=== PATIENT | female | born 1965 | race Caucasian/White ===

== ENCOUNTER 2016-10-15 11:53 | Emergency (ER) | payer OTHER ==
[~2016-10-15] VITALS: Ht 172.7 cm; Wt 91.8 kg
[~2016-10-15 11:53] MED LIST: BUPR100T8 PO; EFFSR150 PO; LEVO25TA5 PO
[2016-10-15 12:00] VITALS: TEMP 37.1; Ht 172.7 cm; Wt 91.8 kg
[2016-10-15] MEDS ORDERED: BUPRTAB51 PO ×2 (12:31)
[2016-10-15] MEDS ORDERED: LEVO125T4 PO (12:31)
[2016-10-15] MEDS ORDERED: EFFSR75 PO (12:31)
[2016-10-15] MEDS ORDERED: CYCL10TA6 PO (13:10)
--- NOTE | 2016-10-15 13:10 | EMERGENCY ROOM VISIT NOTE ---
History First contact with patient: 12:04 Chief Complaint: BACK PAIN Stated Complaint: LOWER BACK PAIN ON RIGHT SIDE, ACCUTE History of Present Illness The patient is a 51 year old female who presents to the Emergency Room via private vehicle with complaints of "lower back pain on right side, acute". The patient states that she has had back pain for the past 3 days. She states that while at work it feel as though she may have pulled a muscle in the right lower back. She states that it is transient and at times it feels like there is a stabbing sensation in the right low back. She notes that it will wax and wane. She notes that at times when it strikes she will yell out in pain. When the pain is occurring she rates it as an 8/10. She notes that currently she is not expressing any pain and rates it as a 0/10. The pain is worse with movement. She denies any lower extremity weakness, bowel or bladder incontinence, numbness or tingling in the genital region, urinary symptoms, fevers, chills, chest pain, shortness of breath, history of kidney stones. She states that she does have a family history of kidney stones. Review of Systems A complete 6-point Review of Systems was discussed with the patient, with pertinent positives and negatives listed in the History of Present Illness. All remaining Review of Systems questions can be considered negative unless otherwise specified. Past Medical/Surgical History Unremarkable, herniated disc, nasal surgery Family History Diabetes, heart disease, high blood pressure, cancer, bladder disease, kidney disease or stones. Social History Smoking Status: Never Smoker Alcohol Use: occasionally Drug Use: none Marital Status: Housing Status: lives with family Occupation Status: employed Social History: Patient is currently employed. Current/Historical Medications Scheduled Bupropion Hcl (Wellbutrin Xl), 300 MG PO DAILY Cyclobenzaprine Hcl (Flexeril), 10 MG PO TID Levothyroxine Sodium (Levothyroxine Sodium), 1 TAB PO DAILY Venlafaxine Hcl (Effexor Extended Rel), 3 TAB PO QAM Allergies Coded Allergies: No Known Allergies (Verified , 10/15/16) Physical Exam Vital Signs Date Time Temp Pulse Resp B/P Pulse Ox O2 Delivery O2 Flow Rate FiO2 10/15/16 13:20 84 16 125/80 100 10/15/16 12:00 37.1 92 18 150/111 99 Room Air Physical Exam VITAL SIGNS - Vital signs and nursing notes were reviewed. Patient is afebrile , slightly hypertensive at 150/111, non-tachycardic and saturating well on room air 99%. GENERAL -51-year-old female appearing her stated age who is in no acute distress. Communicates well with provider and answers questions appropriately. SKIN - Without rashes. No breaks in the integument. HEAD - NC/AT. LUNGS - Chest wall symmetric without accessory muscle use, intercostals retractions, or central cyanosis. Normal vesicular breath sounds CTA B/L. No wheezes, rales, or rhonchi appreciated. CARDIAC - RRR with S1/S2. No murmur, rubs, or gallops appreciated. MUSCULOSKELETAL: No tenderness to palpation overlying the cervical, thoracic or lumbar spine. There is no paraspinal muscle tenderness. When the patient actively rotates at the torso to the right she experiences pain in the right CVA region. There is no CVA tenderness. ABDOMEN - Abdominal contour without pulsations or visible masses. BS normoactive all four quadrants. No tenderness, palpable masses, hepatosplenomegaly, or ascites noted. EXTREMITIES - No clubbing or peripheral cyanosis. No pretibial edema present. + 5/5 strength noted in UE/LE bilaterally. Medical Decision & Procedures Medical Decision Patient was seen and evaluated as above. After obtaining a thorough history and physical examination it does appear that the patient's pain is likely from muscle spasm. However, because the patient does not appear to have a history of back pain like this and does not have a specific incident which has caused this I did indicate to the patient that further intervention may be necessary. In consideration, there was also concern for urinary causes such as pyelonephritis, as well as renal calculi. The patient is on have a history of this but does have a family history. I offered her a CT scan of the abdomen and pelvis without contrast that would help evaluate the bones as well as for any potential stone or acute process. A thorough discussion was had with the patient regarding benefits versus risk. She did decide to decline the CT scan at this time and we began with a urine dip. The urine was unremarkable. I do not suspect any pyelonephritis and it is very unlikely this is a kidney stone. The patient's pain is reproducible with her active movement. I do believe that this all points towards a musculoskeletal cause that is nonemergent in nature. This is likely a muscle spasm/strain. She again was offered additional intervention at this time declined which I do believe is appropriate and we devised a plan of having her take Flexeril over the next few days to help relax the muscles as well as conservative management and she is to return with any worsening or new/concerning symptoms. She is to follow-up with her family doctor regarding today's visit. She was educated upon management, educated upon worrisome symptoms which to return, had questions answered prior to discharge, and was discharged home in good condition. She was given a short-term prescription for Flexeril. In evaluation treatment this patient the following differential diagnoses were entertained: Low back strain, muscle spasm, renal calculi, pyelonephritis, pulmonary embolism, myocardial infarction, thoracic cord infarct, among others. Impression Primary Impression: thoracolumbar back strain of right Departure Information Dispostion Home / Self-Care Condition GOOD Prescriptions Cyclobenzaprine Hcl (FLEXERIL) 10 Mg Tab 10 MG PO TID for 5 Days, #15 TAB Prov: Cezar Gregg PA-C 10/15/16 Referrals Helen Lorenzana PA-C (PCP) Patient Instructions My [facility] Additional Instructions You have been treated in the Emergency Department for Back Pain. You have been prescribed Flexeril (cyclobenzaprine) 1 tabs orally, three times per day. Do NOT exceed 30 mg (6 tabs) per day. Take your first dose at bedtime as it can make you drowsy. Always take all medications as prescribed. For pain control, you can use the following [id number] medicines (if >12 yo): - Regular strength (325mg/tab) Tylenol (acetaminophen) 2 tabs every 4-6 hours as needed. Do not exceed 12 tablets in a 24 hour period. Avoid taking more than 4 grams (4000 mg) of Tylenol per day. This includes any other sources of acetaminophen you may take on a regular basis. - Regular strength (200 mg/tab) Advil (ibuprofen) 1-2 tabs every 4-6 hours as needed. Do not exceed a dose of 3200 mg per day. If this is an acute injury, ice can be applied to the area of pain for the first 3 days to help decrease pain and inflammation. After the first 3 days, a heating pad can be used over the area for continued soothing relief. You should schedule a follow-up appointment in 2-3 days with your Primary Care Provider for further evaluation and treatment of your back pain. Return to the Emergency Department if your current symptoms worsen despite treatment course outlined above, or if you develop any of the following symptoms : intractable pain despite aforementioned treatment course, loss of control of your bowel or bladder, numbness or tingling in your groin, or development of a fever. Please return to emergency department with any new/concerning symptoms.
[2016-10-15 13:20] VITALS: BP 125/80; PULSE 84; O2SAT 100
== END 2016-10-15 13:21 | disposition home or self-care (01) ==
LOC: C.EDB 11:55 → C.EDD 13:21
DX: S39.012A Strain of muscle, fascia and tendon of lower back, initial encounter (principal); X58.XXXA Exposure to other specified factors, initial encounter